=== PATIENT | female | born 1970 | race African-American/Black ===

== ENCOUNTER 2021-08-23 00:19 | Day surgery (SDC) | payer BC, SELFPAY ==
[2021-08-22 09:30] VITALS: BMI 36.4
--- NOTE | 2021-08-22 09:43 | PC.NURSE ---
Report to the Outpatient Waiting Room, entrance under the green pavilion located off [facility], at time 0930 on date 08/23/21. OR Time: 1130. - You will be asked a series of questions to screen for COVID 19 for your protection. - A mask is required within the hospital. - No visitors are allowed at this time. Preoperative COVID Testing Requirements: No COVID Test needed if: (proof is required; if not received patient will have Rapid Test prior to entry) - Patient has received COVID Vaccine at least 14 days prior to procedure date or - Patient has positive COVID test result within last 90 days of surgery date. COVID Test needed if above criteria is not met Patients may have clear liquids (water, carbonated beverages, clear teas, apple juice) until 3 hours prior to surgery with a maximum of 20 ounces. - No food from midnight until time of surgery Take the following medications with a SIP of water the morning of surgery: NONE Medications to discontinue per physician: N/A Date to take last dose: N/A Please no make-up, nail bulgarian, hairspray, perfume, deodorant, or body powder the day of surgery. No jewelry (including any body piercings) or valuables the day of surgery, leave them at home. Please take a shower or bath the night before, or the morning of, surgery with an antibacterial soap. Wear comfortable, loose fitting clothing. - Jewelry must be removed prior to entering the operating room. Rings and piercings that are not removed may be cut off. - The hospital will not accept responsibility for valuables. - Please leave all valuables, including medications, at home the day of surgery. If you are going home after surgery, a licensed driver/merchandiser must drive you home. - NO public transportation without another adult. - We recommend that an adult stay with you for 24 hours following discharge. - We also recommend that you do not drive, make important decision, drink alcoholic beverages, or take any drugs that were not prescribed by your health care provider for at least 24 hours after your discharge time. Follow any additional instructions given to you from your surgeon. Telephone instructions given to SAHIL FLORES and asked if any additional questions and then verbalized understanding. Patient advised to call surgeon office or pre surgery nurse liaison [phone] if any additional questions.
[2021-08-23] VITALS (10 sets, daily range): BP systolic 116–151; BP diastolic 65–93; PULSE 61–81; RESP 11–18; TEMP 36.1–36.3; O2SAT 96–100
--- NOTE | 2021-08-23 09:40 | P.OP_ITS ---
Procedure Note - Detailed Date of Procedure 08/23/21 Pre-op Diagnosis macromastia Post-op Diagnosis same Procedure Performed Bilateral Reduction Mammaplasty Surgeon Nolan Sanon MD Anesthesia general Findings Inverted T Superior medial pedicle Tissue removed: Right - 968 grams Left - 852 grams Description of Procedure She is here today for bilateral breast reduction. Previously and again today the risks, benefits, alternatives were discussed in extensive detail. I wanted her to be very realistic about the risks involved as well as expectations. We discussed aftercare and what to monitor for. She understands we can never guarantee final breast size and there will always be asymmetry. I was very upfront and honest about the risks of sensation change and even nipple loss (). She understands she will have lateral chest wall fullness after the procedure. Made sure answered all of her questions to her satisfaction today and consent was obtained. She was marked in the preoperative holding area with their verification. The patient was taken to the operating room placed supine on the operating table. Anesthesia was provided by anesthesiology. She was prepped and draped in a standard sterile fashion. A surgical time-out was taken. Stab incisions were made and I tumessed with a tumescent solution. I marked out the nipple-areolar complex at 42 mm. I then de-epithelialized the pedicle. The pedicle was well left well more than 2 cm in thickness. I then removed the inferior portion of the breast as well as the central keel to get shape based on preoperative planning. At this point copiously irrigated with saline solution and verified a strict hemostasis. I reapproximated the pillars using a 2-0 PDS. I tailor tacked the breast into place with daisy. She was placed in a sitting position. I verified the nipple-areolar complex position based on preoperative markings, intraoperative measurements, and observation which were in full agreement. This nipple-areolar complex was marked at 42 mm in size. I then placed supine and de-epithelialized this. Nipple-areolar complex was inset with 3-0 Monocryl. I closed IMF deep with 1 strattafix. I closed the vertical incision with 3-0 Monocryl in the IMF with 3- 0 stratafix. Then everything was closed using a running subcuticular 4-0 Monocryl followed by Steri-Strips. A dressing was placed followed by surgical bra. Patient was awoke and taken to PACU without difficulty. All instrument sponge counts were correct at the end of the case. Estimated Blood Loss 30 Drains No Packing No Pathology yes (Bilateral breat tissue) Complications No immediate complications Condition stable Disposition PACU
--- NOTE | 2021-08-23 09:40 | WPDHPUPDATE1 ---
History and Physical Update Update Date/Time: 08/23/21 09:40 History and Physical has been reviewed, including an updated exam of the patient. There are NO changes in the patient's condition. Risks, benefits, and alternatives have been discussed and questions answered. Patient agrees to proceed with procedure.
--- NOTE | 2021-08-23 09:50 | WPDANESEPPF ---
Anes - Initial Pre Proc Eval Procedure: Operation Date: 08/23/21 11:30 Proposed Procedures p Bilateral Breast Reduction - Nolan Sanon MD Date/Time: 08/23/21 09:50 Surgeon: Nolan Sanon MD Pre Op Diagnosis: macromastia Patient Data Age: 51 Gender: F Height: 1.65 m Weight: 99.34 kg Allergies Allergy/AdvReac Type Severity Reaction Status Date / Time No Known Allergies Allergy Verified 08/22/21 09:29 Home Medications Medication Instructions Recorded Confirmed Type docusate sodium 100 mg capsule 100 mg PO BID #14 cap 08/05/21 08/22/21 Rx hydrocodone 5 mg-acetaminophen 325 1 tablet PO Q6H PRN #30 tablet 08/05/21 08/22/21 Rx mg tablet ondansetron HCl 4 mg tablet 4 mg PO Q6H PRN #30 tablet 08/05/21 08/22/21 Rx Patient hx anesthesia problems: none Family hx anesthesia problems: none Results Review: All pre-operative results and documents have been reviewed as part of the pre-operative evaluation. [facility] Surgical History Surgical History History of section 05/25/06, 10/01/07 History of sleeve gastrectomy Social History Social History Smoking status: Never smoker Alcohol intake: never Substance use: never Substance use type: does not use Living arrangements: with family Spiritual care concerns: No Anes - Eval Final PreProcedure Day of Procedure 08/23/21 09:50 Patient weight: obese Heart: regular rate and rhythm Lungs: clear to auscultation Airway: Mallampati scale class II Neurological: alert and oriented Last oral intake: >/= 8 hours ASA classification: III Emergent: no Anesthetic plan: proceed Anesthesia type and monitoring: general ETT and standard monitoring Results Review: All pre-operative results and documents have been reviewed as part of the pre-operative evaluation. Informed Consent: The patient's anesthetic plan and its attendant risks and benefits were discussed with the patient/family/POA. Questions were solicited and answers provided to the satisfaction of the patient/family/POA.
[2021-08-23 10:01] LABS: Urine Cotinine NEGATIVE
[2021-08-23] MEDS: LACTATED RINGERS 1,000 ML 30 ML IV CONT ×3 (10:11→13:15)
[2021-08-23] MEDS: LACTATED RINGERS IRRIG 1,000 ML, LIDOCAINE HCL 1% LOCAL INJ 50 ML, EPINEPHrine HCL INJ ... INFILTRATE (10:19)
[2021-08-23] MEDS: ceFAZolin 2 GM/D5W 50 ML 2 GM/50 ML BAG IVPB (10:19)
[2021-08-23] MEDS: TRANEXAMIC ACID 1,000MG/ISO100 1,000 MG/100 ML BAG 200 MG IVPB (10:30)
[2021-08-23] MEDS: fentaNYL CITRATE INJ (*CRX) 100 MCG/2 ML VIAL 25 MCG IV PUSH ×4 (13:44→14:09)
[2021-08-23] MEDS: oxyCODONE HCL (*CRX) 5 MG TAB IR PO (15:06)
[2021-08-23] MEDS: ONDANSETRON INJ 4 MG/2 ML VIAL IV PUSH (15:36)
== END 2021-08-23 16:18 | disposition home or self-care (01) ==
PROVIDERS: PCP Internal Medicine; Visit Provider Surgery Plastic and Reconstructive Surgery
PROC: 0HBV0ZZ Excision of Bilateral Breast, Open Approach (ICD-10-PCS; CPT 19318; principal; 2021-08-23 11:30)
DX: N62 Hypertrophy of breast (principal); D24.1 Benign neoplasm of right breast; N60.32 Fibrosclerosis of left breast; N60.31 Fibrosclerosis of right breast; N60.42 Mammary duct ectasia of left breast; N60.41 Mammary duct ectasia of right breast; N60.82 Other benign mammary dysplasias of left breast; N60.81 Other benign mammary dysplasias of right breast; D64.9 Anemia, unspecified; M35.00 Sjogren syndrome, unspecified; M54.9 Dorsalgia, unspecified; M54.2 Cervicalgia; M25.511 Pain in right shoulder; M25.512 Pain in left shoulder; G89.29 Other chronic pain; L98.9 Disorder of the skin and subcutaneous tissue, unspecified; Z98.84 Bariatric surgery status; E66.9 Obesity, unspecified; Z68.35 Body mass index [BMI] 35.0-35.9, adult
CPT/HCPCS: 19318; 80307; 88305; A9270; J0171; J0690; J1100; J2250; J2270; J2405; J2704; J3010; J7120